=== PATIENT | male | born 1960 | race Caucasian/White ===

== ENCOUNTER 2020-01-27 11:21 | Emergency (ER) | payer OTHER ==
[2020-01-27 11:39] VITALS: BMI 33.2
--- NOTE | 2020-01-27 12:24 | PDOC ---
History of Present Illness - General History Source: Patient Exam Limitations: Clinical Condition - History of Present Illness Initial Comments: 01/27/20 12:24 Patient with past medical history of hypertension on lisinopril, right DVT 5 years ago and peripheral neuropathy on gabapentin presented with complaint over 2 months history of pain to popliteal right posterior knee and swelling to right lower leg which he was referred to radiology today for duplex by PCP and was told by mail carrier technician of positive blood clot in the right lower leg. Patient d enies shortness of breath, palpitation, chest pain, fever, chills, numbness or tingling sensation. Patient reported painful to walk on right leg due to right lower leg swelling and pain to calf muscle and posterior right knee. Denies any traumatic injury. Denies any other symptoms Is this a multiple visit Asthma Patient?: No <Blayne Pierre - Last Filed: 01/27/20 15:07> <Mitzy Ann - Last Filed: 01/27/20 15:14> - General Chief Complaint: Revisit,Radiology Variance Stated Complaint: BLOOD CLOT Time Seen by Provider: 01/27/20 12:10 Past History - Psycho Social/Smoking Cessation Hx Smoking History: Never smoked Have you smoked in the past 12 months: No Hx Alcohol Use: No Drug/Substance Use Hx: No Substance Use Type: None <Blayne Pierre - Last Filed: 01/27/20 15:07> <Mitzy Ann - Last Filed: 01/27/20 15:14> - Past Medical History Allergies/Adverse Reactions: Allergies Allergy/AdvReac Type Severity Reaction Status Date / Time No Known Allergies Allergy Verified 01/27/20 11:34 Home Medications: Ambulatory Orders Apixaban [Eliquis - Starter Pack (For VTE)] 5 mg PO UTDICT 30 Days #30 tab 01/27/20 Chlorthalidone 25 mg PO DAILY 01/27/20 Gabapentin 100 mg OD TID 01/27/20 Lamotrigine 150 mg PO BID 01/27/20 Lisinopril [Zestril] 2.5 mg PO DAILY 01/27/20 Review of Systems - Review of Systems Able to Perform ROS?: Yes Is the patient limited Sudanese proficient: No Constitutional: No: Chills, Fever, Malaise HEENTM: No: Symptoms Reported, See HPI, Eye Pain, Blurred Vision, Tearing, Recent change in vision, Double Vision, Cataracts, Ear Pain, Ocular Prothesis, Ear Discharge, Nose Pain, Nose Congestion, Tinnitus, Nose Bleeding, Hearing Loss, Throat Pain, Throat Swelling, Mouth Pain, Dental Problems, Difficulty Swallowing, Mouth Swelling, Other Respiratory: No: Symptoms reported, See HPI, Cough, Orthopnea, Shortness of Breath, SOB with Exertion, SOB at Rest, Stridor, Wheezing, Productive cough, Hemoptysis, Other Cardiac (ROS): No: Symptoms Reported, See HPI, Chest Pain, Edema, Irregular Heart Rate, Lightheadedness, Palpitations, Syncope, Chest Tightness, Other ABD/GI: No: Symptoms Reported, Nausea, Vomiting Musculoskeletal: Yes: Symptoms Reported, See HPI, Joint Swelling (right lower leg swelling), Muscle Pain (right calf muscle pain) Integumentary: Yes: Symptoms Reported, See HPI, Other (swelling to right calf muscle and lower leg) Neurological: No: Symptoms reported, Headache, Numbness, Paresthesia, Dizziness All Other Systems: Reviewed and Negative <Blayne Pierre Benito - Last Filed: 01/27/20 15:07> *Physical Exam - Vital Signs Last Vital Signs Temp Pulse Resp BP Pulse Ox 98.1 F 73 18 120/78 98 01/27/20 11:38 01/27/20 11:38 01/27/20 11:38 01/27/20 11:38 01/27/20 11:38 - Physical Exam 01/27/20 12:28 GENERAL: Well developed, well nourished. Awake and alert. No acute distress. NECK: Supple. Full ROM. CARDIOVASCULAR: Regular rate and rhythm. No murmurs, rubs, or gallops. Distal pulses are 2+ and symmetric. PULMONARY: No evidence of respiratory distress. Lungs clear to auscultation bilaterally. No wheezing, rales or rhonchi. MUSCULOSKELETAL Normal range of motion at all joints. EXTREMITIES: Moderate edema right lower leg and calf muscle. Moderate tenderness to right popliteal fossa and right calf tenderness. SKIN: Warm and dry. Normal capillary refill. Moderate swelling to right calf muscle and lower leg compared to left leg NEUROLOGICAL: Alert, awake, appropriate. Gait is normal without ataxia. PSYCHIATRIC: Cooperative. Good eye contact. Appropriate mood General Appearance: Yes: Nourished, Appropriately Dressed. No: Apparent Distress <Blayne Pierre - Last Filed: 01/27/20 15:07> - Vital Signs Last Vital Signs Temp Pulse Resp BP Pulse Ox 98.4 F 62 20 108/67 96 01/27/20 14:18 01/27/20 14:18 01/27/20 14:18 01/27/20 14:18 01/27/20 14:18 <Mitzy Ann - Last Filed: 01/27/20 15:14> ED Treatment Course - LABORATORY CBC & Chemistry Diagram: 01/27/20 12:20 01/27/20 12:20 <Blayne Pierre - Last Filed: 01/27/20 15:07> - LABORATORY CBC & Chemistry Diagram: 01/27/20 12:20 01/27/20 12:20 - ADDITIONAL ORDERS Additional order review: Laboratory Results 01/27/20 01/27/20 12:20 12:20 PT with INR 11.50 INR 0.97 PTT (Actin FS) 52.5 H Sodium 141 Potassium 4.5 Chloride 105 Carbon Dioxide 31 Anion Gap 6 L BUN 19.6 H Creatinine 1.4 H Est GFR (CKD-EPI)AfAm 63.73 Est GFR (CKD-EPI)NonAf 54.99 Random Glucose 87 Calcium 8.9 Total Bilirubin 0.6 AST 29 ALT 40 Alkaline Phosphatase 66 Total Protein 7.8 Albumin 4.1 01/27/20 12:20 RBC 4.78 MCV 87.8 MCHC 35.4 RDW 13.0 MPV 8.9 Neutrophils % 65.1 D Lymphocytes % 23.9 D Monocytes % 7.9 Eosinophils % 2.7 D Basophils % 0.4 - Medications Given in the ED: ED Medications Discontinued Medications Generic Name Dose Route Start Last Admin Trade Name Freq PRN Reason Stop Dose Admin Apixaban 5 mg 01/27/20 14:09 01/27/20 14:12 Eliquis - PO 01/27/20 14:10 5 mg ONCE ONE Administration Dabigatran 150 mg 01/27/20 13:41 01/27/20 14:12 Pradaxa - PO 01/27/20 13:42 Not Given ONCE ONE <Mitzy Ann - Last Filed: 01/27/20 15:14> Medical Decision Making - Medical Decision Making 01/27/20 12:26 Patient with past medical history of hypertension on lisinopril, right DVT 5 years ago and peripheral neuropathy on gabapentin presented with complaint over 2 months history of pain to popliteal right posterior knee and swelling to right lower leg which he was referred to radiology today for duplex by PCP and was told by mail carrier technician of positive blood clot in the right lower leg. Patient denies shortness of breath, palpitation, chest pain, fever, chills, numbness or tingling sensation. Patient reported painful to walk on right leg due to right lower leg swelling and pain to calf muscle and posterior right knee. Denies any traumatic injury. Denies any other symptoms Exam significant for moderate tenderness to popliteal fossa of right knee posterior knee with moderate swelling to right lower leg and calf muscle as compared to left leg. Positive Homans sign. Patient symptoms consistent with DVT. Duplex ultrasound pending radiology reading. Will do basic lab work and PT and PTT pending duplex reading and will consult vascular 01/27/20 13:02 Duplex ultrasound shows right superficial femoral and popliteal veins DVT. Call made to vascular consult for management of DVT and pending callback 01/27/20 15:07 Vascular's consult in procedure room. Patient prefer outpatient management for DVT. Patient clinically stable and have no symptoms apart from calf pain is stable for discharge on Eliquis 5 mg twice daily daily with follow-up in vascular clinic. patient given a dose of Eliquis prior to discharge <Blayne Pierre - Last Filed: 01/27/20 15:07> - Medical Decision Making I reviewed the case with the mid-level practitioner and agree with the mid-level practitioner's assessment, diagnosis and disposition. <Mitzy Ann - Last Filed: 01/27/20 15:14> Discharge - Discharge Information Problems reviewed: Yes - Admission No <Blayne Pierre - Last Filed: 01/27/20 15:07> <Mitzy Ann - Last Filed: 01/27/20 15:14> - Discharge Information Clinical Impression/Diagnosis: Right leg DVT Qualifiers: Affected thrombotic vein of extremity: femoral Chronicity: acute Qualified Code(s): I82.411 - Acute embolism and thrombosis of right femoral vein Condition: Stable Disposition: HOME - Additional Discharge Information Prescriptions: Apixaban [Eliquis - Starter Pack (For VTE)] 5 mg PO UTDICT 30 Days #30 tab - Follow up/Referral Referrals: Lul Hansen DO [Staff Physician] - - Patient Discharge Instructions Patient Printed Discharge Instructions: DI for Deep Vein Thrombosis Additional Instructions: Take prescribed medication as prescribed for DVT. Follow-up with referred vascular specialist as soon as possible
[2020-01-27 12:44] LABS: BASO % 0.4 % (0-2.0); EOS % 2.7 % (0-4.5); HEMOGLOBIN 14.9 GM/dL (11.7-16.9); LYMPH % 23.9 % (8-40); MCH 31.1 pg (25.7-33.7); MCHC 35.4 g/dl (32.0-35.9); MEAN CELL VOLUME 87.8 fl (80-96); MEAN PLT VOLUME 8.9 fl (7.5-11.1); MONO % 7.9 % (3.8-10.2); NEUT % 65.1 % (42.8-82.8); PLATELET COUNT 184 K/MM3 (134-434); RBC 4.78 M/mm3 (4.00-5.60); WHITE BLOOD COUNT 7.5 K/mm3 (4.0-10.0)
[2020-01-27 12:51] LABS: INR 0.97 (0.83-1.09); PROTHROMBIN TIME (PATIENT) 11.5 SEC (9.7-13.0)
[2020-01-27 12:53] LABS: ACTIVATED PTT 52.5 SECONDS (25.2-36.5)
[2020-01-27 13:18] LABS: ALBUMIN 4.1 g/dl (3.4-5.0); BILIRUBIN,TOTAL 0.6 mg/dL (0.2-1); BLOOD UREA NITROGEN 19.6 mg/dL (7-18); CALCIUM 8.9 mg/dL (8.5-10.1); CREATININE 1.4 mg/dL (0.55-1.3); POTASSIUM 4.5 mmol/L (3.5-5.1); TOT PROT 7.8 g/dl (6.4-8.2)
[2020-01-27] MEDS ORDERED: DABIGATRAN ETEXILATE MESYLATE 150 MG CAPSULE PO ONE (13:41)
[2020-01-27] MEDS ORDERED: APIXABAN 5 MG TABLET ONE (14:05)
[2020-01-27] MEDS ORDERED: APIXABAN 5 MG TABLET PO ONE (14:09)
[2020-01-27 14:20] VITALS: BP 108/67; PULSE 62; TEMP 98.4
== END 2020-01-27 14:35 | disposition home or self-care (01) ==
LOC: JER 11:21
DX: I82.411 Acute embolism and thrombosis of right femoral vein (principal); I10 Essential (primary) hypertension; I82.431 Acute embolism and thrombosis of right popliteal vein; G62.9 Polyneuropathy, unspecified; Z86.718 Personal history of other venous thrombosis and embolism
CPT/HCPCS: 36415; 80053; 85025; 85610; 85730; 99283-25